=== PATIENT | male | born 1995 | race Caucasian/White ===

== ENCOUNTER 2020-10-27 19:00 | Emergency (ER) | payer OTHER ==
[~2020-10-27] VITALS: Ht 180.3 cm; Wt 129.3 kg
[2020-10-27] MEDS ORDERED: LEXAPRO 10 MG T10 MG PO (19:23)
[2020-10-27 20:43] VITALS: BP 143/115
== END 2020-10-27 20:45 | disposition home or self-care (01) ==
LOC: ER 19:00
DX: S62.502A Fracture of unspecified phalanx of left thumb, initial encounter for closed fracture (principal); Z79.899 Other long term (current) drug therapy; Z88.5 Allergy status to narcotic agent; W10.9XXA Fall (on) (from) unspecified stairs and steps, initial encounter; Y93.89 Activity, other specified; Y92.89 Other specified places as the place of occurrence of the external cause; Y99.8 Other external cause status